=== PATIENT | female | born 1935 | race Two or more races ===

== ENCOUNTER 2017-08-24 10:37 | Outpatient (CLI) | payer OTHER ==
[~2017-08-24 10:37] MED LIST: GASTRINEX CAPSU1 CAP PO; NORVASC5 MG PO; PREVACID30 MG PO; SYNTHROID50 MCG PO
== END 2017-08-24 10:46 | disposition home or self-care (01) ==
LOC: NUCLEAR 10:37
DX: I51.89 Other ill-defined heart diseases (principal)

== ENCOUNTER 2020-05-10 08:26 | Outpatient (CLI) | payer OTHER | END 2020-05-10 08:37 | disposition home or self-care (01) | LOC: NUCLEAR 08:26 | PROVIDERS: ATTEND Internal Medicine | DX: G45.8 Other transient cerebral ischemic attacks and related syndromes (principal) ==

== ENCOUNTER 2020-05-10 09:13 | Outpatient (CLI) | payer OTHER | END 2020-05-10 09:24 | disposition home or self-care (01) | LOC: TOM 09:13 | PROVIDERS: ATTEND Internal Medicine | DX: J44.1 Chronic obstructive pulmonary disease with (acute) exacerbation (principal); G45.8 Other transient cerebral ischemic attacks and related syndromes ==

== ENCOUNTER 2022-09-02 12:10 | Outpatient (CLI) | payer OTHER | END 2022-09-02 12:15 | disposition home or self-care (01) | LOC: RAD 12:10 | PROVIDERS: ATTEND Internal Medicine | DX: M54.6 Pain in thoracic spine (principal) ==

== ENCOUNTER 2022-10-01 14:51 | Emergency (ER) | payer OTHER ==
[~2022-10-01] VITALS: Ht 144.8 cm; Wt 49.0 kg
[2022-10-01] MEDS ORDERED: PEPCID AC20 MG PO (19:38)
== END 2022-10-01 20:19 | disposition home or self-care (01) ==
LOC: ER 14:51
DX: R10.9 Unspecified abdominal pain (principal)

== ENCOUNTER 2022-10-05 19:43 | Inpatient (IN) | payer OTHER ==
[~2022-10-05] VITALS: Ht 157.5 cm; Wt 49.0 kg
[~2022-10-05 19:43] MED LIST changes: +PEPCID AC20 MG PO
== END 2022-10-08 14:06 | disposition home or self-care (01) | DRG 641 ==
LOC: MEDJ 19:43
PROVIDERS: ADMIT Internal Medicine; ATTEND Internal Medicine
PROC: BW21YZZ Computerized Tomography (CT Scan) of Abdomen and Pelvis using Other Contrast (ICD-10-PCS; principal; 2022-10-05)
DX: E87.1 Hypo-osmolality and hyponatremia (principal); E86.0 Dehydration; I11.9 Hypertensive heart disease without heart failure
CPT/HCPCS: 240

== ENCOUNTER 2023-04-06 10:45 | Outpatient (CLI) | payer OTHER | END 2023-04-06 11:00 | disposition home or self-care (01) | LOC: MRI 10:45 | PROVIDERS: ATTEND Psychiatry & Neurology Clinical Neurophysiology | DX: G31.84 Mild cognitive impairment of uncertain or unknown etiology (principal); G30.1 Alzheimer's disease with late onset | CPT/HCPCS: 70551 ==

== ENCOUNTER 2023-10-15 15:29 | Outpatient (CLI) | payer OTHER | END 2023-10-15 15:33 | disposition home or self-care (01) | LOC: RAD 15:29 | PROVIDERS: ATTEND Internal Medicine Gastroenterology | DX: R10.13 Epigastric pain (principal); R10.84 Generalized abdominal pain ==

== ENCOUNTER 2023-11-17 11:01 | Outpatient (CLI) | payer OTHER ==
[2023-11-17 13:04] LABS: CREATININE SERUM 0.84 mg/dL (0.55-1.02)
== END 2023-11-17 11:11 | disposition home or self-care (01) ==
LOC: LAB 11:01
PROVIDERS: ATTEND Radiology Diagnostic Radiology
DX: R10.9 Unspecified abdominal pain (principal); Z88.5 Allergy status to narcotic agent

== ENCOUNTER 2023-12-07 08:51 | Outpatient (CLI) | payer OTHER | END 2023-12-07 09:00 | disposition home or self-care (01) | LOC: TOM 08:51 | PROVIDERS: ATTEND Internal Medicine Gastroenterology | DX: R10.9 Unspecified abdominal pain (principal) ==

== ENCOUNTER 2024-09-11 10:52 | Outpatient (CLI) | payer OTHER | END 2024-09-11 10:57 | disposition home or self-care (01) | LOC: SONOGRAMA 10:52 | PROVIDERS: ATTEND Internal Medicine | DX: M15.0 Primary generalized (osteo)arthritis (principal); M25.121 Fistula, right elbow ==